=== PATIENT | female | born 2000 | race African-American/Black ===

== ENCOUNTER 2018-06-13 15:06 | Emergency (ER) | payer BC, OTHER ==
[~2018-06-13] VITALS: Ht 170.2 cm; Wt 56.7 kg
--- NOTE | 2018-06-13 15:27 | ED Hip Pain/Injury ---
General Stated Complaint: R HIP INJ Source: patient Exam Limitations: no limitations History of Present Illness Date Seen by Provider: Jun 13, 2018 Time Seen by Provider: 15:15 Initial Comments 17-year-old female who presents to emergency room with complaints of right hip pain after falling at a track meet while running. She reports she was unable to bear weight on the right hip after falling. She is accompanied by a boxing trainer. Timing/Duration: just prior to arrival Location: hip (R) Method of Injury: fell Associated Symptoms: denies symptoms Allergies and Home Medications Allergies Coded Allergies: No Known Drug Allergies (Unverified , 06/13/18) Home Medications Hydrocodone Bit/Acetaminophen 1 Tab Tab, 1 EACH PO Q4-6HR PRN for PAIN-MODERATE Prescribed by: MARCELLA MARIE on 06/13/18 5815 Patient Home Medication List Home Medication List Reviewed: Yes Review of Systems Constitutional: see HPI; No chills, No fever Musculoskeletal: see HPI, joint pain (right hip pain) All Other Systems Reviewed Negative Unless Noted: Yes Past Tcgpiah-Gexbzz-Kcefjx Hx Past Med/Social Hx: Reviewed Nursing Past Med/Soc Hx Patient Social History Recent Foreign Travel: No Contact w/Someone Who Travel: No Family Medical History Reviewed Nursing Family Hx Physical Exam Vital Signs Vital Signs - First Documented 06/13/18 06/13/18 06/13/18 15:15 16:37 18:29 Temp 97.4 Pulse 97 Resp 20 B/P (MAP) 110/72 Pulse Ox 99 O2 Delivery Room Air O2 Flow Rate 3.00 Capillary Refill : Height, Weight, BMI Height: '" Weight: lbs. oz. kg; BMI Method: General Appearance: No Apparent Distress Cardiovascular: Regular Rate, Rhythm, No Edema, No Gallop, No JVD, No Murmur, Normal Peripheral Pulses Respiratory: Chest Non Tender, Lungs Clear, Normal Breath Sounds, No Accessory Muscle Use, No Respiratory Distress, Accessory Muscle Use Gastrointestinal: Normal Bowel Sounds, No Organomegaly, No Pulsatile Mass, Non Tender, Soft Extremity: Normal Capillary Refill, Normal Inspection, No Calf Tenderness, No Pedal Edema, Pelvis Stable (right hip pain and inability to bear weight) Neurologic/Psychiatric: Alert, Oriented x3, Normal Mood/Affect Skin: Normal Color, Warm/Dry Procedures/Interventions Splinting and Joint Reduction : Pre-Proc Neuro Vasc Exam: normal Post-Proc Neuro Vasc Exam: normal Joint Reduction Site: hip (R) Reduction Attempts: 1 Pre-Procedure NV Exam: Yes post joint reduction film: joint reduced Progress Administration of Versed 2 mg and etomidate 20 mg to sedate and relax the patient. After she was given sedated. Dr. Lyon and myself relocated the hip by pulling downward at her ankle causing steady constant pressure. The hip popped and appeared to be relocated. This was confirmed by post reduction x-ray. Immobilizers: Flexion Limit Knee Long Ordered: Crutches Progress/Results/Core Measures Results/Orders My Orders Orders - MARCELLA MARIE Pelvis With Right Hip 2-3views (06/13/18 15:17) Hydrocodone/Apap 5/325 Tablet (Lortab 5 (06/13/18 15:30) Fentanyl Injection (Sublimaze Injection (06/13/18 16:00) Midazolam Injection (Versed Injection) (06/13/18 16:30) Etomidate Injection (Amidate Injection) (06/13/18 16:30) Hip, Right (Single View) (06/13/18 16:29) General/Regular (06/13/18 Dinner) Rx-Hydrocodone/Apap 5-325 Mg (Rx-Vicodin (06/13/18 18:00) Medications Given in ED Vital Signs/I&O 06/13/18 06/13/18 06/13/18 15:15 16:37 18:29 Temp 97.4 98.0 Pulse 97 74 Resp 20 18 B/P (MAP) 110/72 Pulse Ox 99 O2 Delivery Room Air OxyMask Room Air O2 Flow Rate 3.00 06/14/18 00:00 Intake Total 300 ml Balance 300 ml Progress Progress Note : Time: 16:30 Progress Note I have seen and evaluated the patient. I've informed her of her imaging studies. I have discussed these findings with Dr. Chacon the orthopedic surgeon farm contractor buyer. He recommends relocating hip and placing her in a knee immobilizer and using tiptoe weightbearing and the use of crutches. He also recommends no internal rotation and avoid flexing the hip altogether. Diagnostic Imaging Diagonstic Imaging: Xray Plain Films/CT/US/NM/MRI: pelvis, hip Comments NAME: ARIANNE GARCIA [employer] REC#: [id number] PT STATUS: REG ER : 2000 PHYSICIAN: MARCELLA MARIE ADMIT DATE: 06/13/18/ER Signed Date of Exam: 06/13/18 PELVIS WITH RIGHT HIP 2-3VIEWS EXAM: Pelvis with right hip, 2-3 views. INDICATION: Right hip pain. COMPARISON: None. FINDINGS: There is posterior dislocation of the right femur in relation to the acetabulum. There is also a fracture fragment along the superior aspect of the acetabulum. Osseous structures are otherwise intact. IUD. IMPRESSION: Posterior dislocation of the right femur. There is osseous fragment along the superior aspect of the acetabulum likely originating from the acetabulum. Findings discussed with NEO Leroy at 3:55 p.m. on 06/13/2018. Dictated by: Dictated on workstation # [id number] Dict: 06/13/18 1552 Trans: 06/13/181709 Interpreted by: LUX DUTTA MD Electronically signed by: LUX DUTTA MD 06/13/181709 NAME: ARIANNE GARCIA [employer] REC#: [id number] PT STATUS: REG ER : 2000 PHYSICIAN: MARCELLA MARIE ADMIT DATE: 06/13/18/ER Signed Date of Exam: 06/13/18 HIP, RIGHT (SINGLE VIEW) Clinical indication: Patient fell during track meet. Post reduction of right hip dislocation. Exam: X-ray of the right hip, AP view. Comparison: X-ray of the pelvis and right hip dated 06/13/2017 at 1527 hours. Findings and impression: 1: There is interval relocation of the right femoral head in relation to the right acetabulum. 2: Again seen is a small fracture fragment involving the acetabulum, which is seen posteriorly and laterally. There is no other fracture or dislocation seen. Dictated by: Dictated on workstation # [id number] Dict: 06/13/18 1644 Trans: 06/13/181712 Interpreted by: KRYSTYNA HEIN MD Electronically signed by: KRYSTYNA HEIN MD 06/13/18 1713 Reviewed: Reviewed by Me Departure Impression Primary Impression: Dislocation, hip Disposition: HOME, SELF-CARE Condition: Stable/Unchanged Departure-Patient Inst. Decision time for Depature: 17:18 Referrals: NO,LOCAL PHYSICIAN (PCP/Family) Primary Care Physician Patient Instructions: Hip Dislocation (DC) Add. Discharge Instructions: Take medications as directed. Prevent from internally or externally rotating your hip or flexing her hip muscles. Tylenol and Motrin as needed for pain. For pain unrelieved by Tylenol Motrin you may use the hydrocodone. Wear the knee immobilizer at all times. Use crutches at all times when ambulating and tip toe weightbearing on the right lower extremity. Follow-up with your sports medicine doctor first thing Friday morning for further evaluation. Return back to the emergency room for worsening symptoms or concerns as needed. No sports until cleared by sports medicine physician. Scripts Hydrocodone Bit/Acetaminophen (Hydrocodone/Acetaminophen 5/325mg Tablet) 1 Tab Tab 1 EACH PO Q4-6HR PRN for PAIN-MODERATE MDD 10, #14 TAB Prov: MARCELLA MARIE 06/13/18 MARCELLA MARIE Jun 13, 2018 15:27
[2018-06-13] MEDS ORDERED: HYDROcodone/APAP 5 MG/325 MG (LORTAB) TAB PO ONE (15:30)
[2018-06-13] MEDS ORDERED: fentaNYL INJECTION 100 MCG/2 ML AMP IVP ONE (16:00)
--- NOTE | 2018-06-13 16:04 | Diagnostic Imaging Report ---
EXAM: Pelvis with right hip, 2-3 views. INDICATION: Right hip pain. COMPARISON: None. FINDINGS: There is posterior dislocation of the right femur in relation to the acetabulum. There is also a fracture fragment along the superior aspect of the acetabulum. Osseous structures are otherwise intact. IUD. IMPRESSION: Posterior dislocation of the right femur. There is osseous fragment along the superior aspect of the acetabulum likely originating from the acetabulum. Findings discussed with NEO Leroy at 3:55 p.m. on 06/13/2018. Dictated by: Dictated on workstation # [id number]
[2018-06-13] MEDS ORDERED: ETOMIDATE IV SOLN 20 MG/10 ML VIAL ONE (16:10)
[2018-06-13] MEDS ORDERED: NS IV 500 ML 500 ML ONE (16:11)
[2018-06-13] MEDS ORDERED: MIDAZOLAM 5 MG/5 ML (VERSED) VIAL ONE (16:11)
[2018-06-13] MEDS ORDERED: MIDAZOLAM 5 MG/5 ML (VERSED) VIAL IVP ONE (16:30)
[2018-06-13] MEDS ORDERED: ETOMIDATE IV SOLN 20 MG/10 ML VIAL IV ONE (16:30)
--- NOTE | 2018-06-13 16:49 | Diagnostic Imaging Report ---
Clinical indication: Patient fell during track meet. Post reduction of right hip dislocation. Exam: X-ray of the right hip, AP view. Comparison: X-ray of the pelvis and right hip dated 06/13/2017 at 1527 hours. Findings and impression: 1: There is interval relocation of the right femoral head in relation to the right acetabulum. 2: Again seen is a small fracture fragment involving the acetabulum, which is seen posteriorly and laterally. There is no other fracture or dislocation seen. Dictated by: Dictated on workstation # [id number]
[2018-06-13] MEDS ORDERED: ACHD5005 PO (17:51)
[2018-06-13] MEDS ORDERED: RX-HYDROCODONE/APAP 5/325 MG #4 TAB PK PO PRN (18:00)
== END 2018-06-13 18:34 | disposition home or self-care (01) ==
LOC: ER 15:08
DX: S73.014A Posterior dislocation of right hip, initial encounter (principal); W18.30XA Fall on same level, unspecified, initial encounter; Y93.02 Activity, running
CPT/HCPCS: 73501; 93041